=== PATIENT | female | born 1990 | race African-American/Black ===

== ENCOUNTER 2017-01-09 22:50 | Emergency (ER) | payer MEDICAID ==
[~2017-01-09] VITALS: Ht 162.6 cm; Wt 81.6 kg
[2017-01-09 23:00] VITALS: BP 125/73
[2017-01-09 23:38] LABS: Basophils # (auto) 0.1 uL; Eosinophils # (auto) 0.3 uL; Eosinophils % (auto) 2.1 % (0.0-7.0); Hematocrit 40.6 % (36.0-46.0); Hemoglobin 13.7 g/dL (12.2-16.2); Lymphocytes # (auto) 3.7 uL; Lymphocytes % (auto) 29.5 % (10.0-50.0); Mean Corpuscular Hgb Conc. 33.8 g/dL (32.0-36.0); Mean Corpuscular Volume 88.6 fL (80.0-100.0); Mean Platelet Volume 7.9 fL (7.4-10.4); Monocytes # (auto) 0.8 uL; Monocytes % (auto) 6.4 % (0.0-12.0); Neutrophils # (auto) 7.7 uL; Platelet Count (auto) 312 10^3/uL (140-450); Red Cell Distribution Width 11.3 % (11.6-16.0); SUSPECT SEE PRINTOUT; White Blood Cell 12.6 10^3/uL (4.4-10.8)
[2017-01-10] LABS: Urine RBC None Seen /hpf (0 - 4)
[2017-01-10 00:01] LABS: Albumin 4.1 g/dL (3.4-5.0); BUN/Creatinine Ratio 16.5; Potassium 3.7 mmol/L (3.5-5.1)
[2017-01-10 00:04] LABS: Bilirubin, Total 0.2 mg/dL (0.2-1.0); Total Protein 8.1 g/dL (6.4-8.2)
[2017-01-10 00:07] LABS: Urine Bilirubin Negative (Negative); Urine Blood Negative /uL (Negative); Urine Color Yellow (Yellow); Urine Glucose Normal (Normal); Urine Ketone Negative (Negative); Urine Nitrite Negative (Negative); Urine Squamous Epithelial Cell FEW /hpf (<5); Urine Urobilinogen Normal (Negative)
== END 2017-01-10 03:45 | disposition home or self-care (01) ==
LOC: ER 22:50
DX: T83.69XA Infection and inflammatory reaction due to other prosthetic device, implant and graft in genital tract, initial encounter (principal); E66.9 Obesity, unspecified; G43.909 Migraine, unspecified, not intractable, without status migrainosus; Z68.30 Body mass index [BMI] 30.0-30.9, adult; Y83.8 Other surgical procedures as the cause of abnormal reaction of the patient, or of later complication, without mention of misadventure at the time of the procedure; Y92.89 Other specified places as the place of occurrence of the external cause
CPT/HCPCS: 36415; 74000; 80053; 81001; 81025; 82150; 83690; 85025

== ENCOUNTER 2020-05-04 14:55 | Emergency (ER) | payer MEDICAID ==
[~2020-05-04] VITALS: Ht 162.6 cm; Wt 72.6 kg
[~2020-05-04 14:55] MED LIST: BUSP5TAB51 PO; DOXY-340 PO; FLUO20CA19 PO
[2020-05-04 16:46] VITALS: BP 135/87
== END 2020-05-04 16:49 | disposition home or self-care (01) ==
LOC: ER 15:03
DX: M79.601 Pain in right arm (principal); R20.0 Anesthesia of skin; Z87.891 Personal history of nicotine dependence
CPT/HCPCS: 93971

== ENCOUNTER 2021-11-22 17:22 | Emergency (ER) | payer MEDICAID, OTHER ==
[~2021-11-22] VITALS: Ht 160 cm; Wt 72.6 kg
[2021-11-23] MEDS ORDERED: KETOROLAC TROMETH 60MG/2ML VIAL IM ONE (01:15)
[2021-11-23 01:54] VITALS: BP 122/68
== END 2021-11-23 07:43 | disposition left against medical advice (07) ==
LOC: ER 17:22
DX: R10.30 Lower abdominal pain, unspecified (principal); R51.9 Headache, unspecified; Z53.21 Procedure and treatment not carried out due to patient leaving prior to being seen by health care provider; V89.2XXA Person injured in unspecified motor-vehicle accident, traffic, initial encounter; Y93.89 Activity, other specified; Y92.410 Unspecified street and highway as the place of occurrence of the external cause; Y99.8 Other external cause status
CPT/HCPCS: 70450; 70486; 81025; J1885; 96372

== ENCOUNTER 2024-08-02 19:06 | Emergency (ER) | payer MEDICAID ==
[~2024-08-02] VITALS: Ht 157.5 cm; Wt 62.3 kg
[~2024-08-02 19:06] MED LIST changes: -DOXY-340 PO; +DOXY1CAP57 PO
--- NOTE | 2024-08-02 21:18 | DVH ---
EXAMINATION: 3 views of the lumbar spine CLINICAL HISTORY: pain/injury lifting COMPARISON: None Findings and impression: Mild lumbar levoscoliosis. No grossly displaced fractures or subluxations identified. Vertebral yamile dy heights appear maintained. Disc space narrowing at L1-L2 with associated marginal osteophyte forma tion. The visualized sacroiliac joints appear symmetric.
[2024-08-02] MEDS: DexAMETHasone SOD PHOS 10MG/1ML VIAL INJ IM ONE (22:37)
[2024-08-02] MEDS: KETOROLAC TROMETH 60MG/2ML VIAL IM ONE (22:37)
[2024-08-02 22:54] VITALS: BP 100/55; PULSE 77; RESP 18; TEMP 98.3; O2SAT 98
--- NOTE | 2024-08-02 22:59 | ED.PDOC ---
Back pain HPI HPI Comments Pt C/O lower back pain that radiates into the right hip and down the right leg x 5 days. Pt states she believes she pulled something lifting her 17 year old. Denies numbness, weakness, saddle anesthesia, loss of bowel or bladder control. Chief Complaint: Back Pain Time Seen by MD: 19:32 Primary Care Provider: ARMANDO Alvarez Notes: Nurses Notes, Medications, Allergies Allergies: Coded Allergies: NO KNOWN ALLERGIES (Unverified , 01/09/17) Home Meds Active Scripts Doxycycline Monohydrate (Doxycycline Monohydrate) 100 Mg Cap, 1 CAP PO BID for 10 Days, #20 CAP Prov:MINNA WHARTON MD 01/11/19 Reported Medications Fluoxetine Hcl (Pmdd) (Fluoxetine) 20 Mg Cap, 1 CAP PO DAILY, #90 CAP 1 Refill 01/08/19 Buspirone Hcl (Buspirone Hcl) 5 Mg Tab, 5 MG PO Q12HR for 30 Days, MG 01/08/19 Information Source: Patient Mode of Arrival: Ambulatory Past Medical History PAST MEDICAL HISTORY: Depression Surgical History: DAIRY TECHNICIAN History: No Pertinent DAIRY TECHNICIAN History Family History Family History: Reviewed,noncontributory to illness Social History Smoker: Quit Greater Than 1 Year, Cigarettes Alcohol: Occasionally Drugs: Marijuana Lives In: Home Constitutional: denies: chills, diaphoresis, fatigue, fever, malaise, sweats, weakness, others EENTM: denies: blurred vision, double vision, ear bleeding, ear discharge, ear drainage, ear pain, ear ringing, eye pain, eye redness, hearing loss, mouth pain, mouth swelling, nasal discharge, nose bleeding, nose congestion, nose pain, photophobia, tearing, throat pain, throat swelling, voice changes, others Respiratory: denies: cough, hemoptysis, orthopnea, SOB at rest, shortness of breath, SOB with excertion, stridor, wheezing, others Cardiovascular: denies: chest pain, dizzy spells, diaphoresis, Dyspnea on exertion, edema, irregular heart beat, left arm pain, lightheadedness, palpitations, PND, syncope, others Gastrointestinal: denies: abdomen distended, abdominal pain, blood streaked bowels, constipated, diarrhea, dysphagia, difficulty swallowing, hematemesis, melena, nausea, poor appetite, poor fluid intake, rectal bleeding, rectal pain, vomiting, others Genitourinary: denies: abnormal vagina bleeding, burning, dyspareunia, dysuria, flank pain, frequency, hematuria, incontinence, pain, , vagina discharge, urgency, others Neurological: denies: dizziness, fainting, headache, left sided numbness, left sided weakness, numbness, paresthesia, pre-existing deficit, right sided numbness, right sided weakness, seizure, speech problems, tingling, tremors, weakness, others Musculoskeletal: denies: back pain, gout, joint pain, joint swelling, muscle pain, muscle stiffness, neck pain, others Integumetry: denies: bruises, change in color, change in hair/nails, dryness, laceration, lesions, lumps, rash, wounds, others Allergic/Immunocompromised: denies: Difficulty Healing, Frequent Infections, Hives, Itching, others Hematologic/Lymphatic: denies: anemia, blood clots, easy bleeding, easy bruising, swollen glands, others Endocrine: denies: excessive hunger, excessive sweating, excessive thirst, excessive urination, flushing, intolerance to cold, intolerance to heat, unexplained weight gain, unexplained weight loss, others Psychiatric: denies: anxiety, bipolar disorder, depression, hopeless, panic disorder, schizophrenia, sleepless, suicidal, others Physical Exam General Appearance: No Apparent Distress, Normal HEENT: Pharynx Normal Neck: Full Range of Motion, Non-Tender Respiratory: Lungs Clear, No Respiratory Distress, Normal Breath Sounds Cardiovascular: No Murmur, Normal Peripheral Pulses, Regular Rate/Rhythm Breast Exam: Deferred Gastrointestinal: Non Tender, Soft Genitalia: Deferred Pelvic: Deferred Rectal: Deferred Extremities: Normal capillary refill, Normal inspection, Normal range of motion, Non-tender, No pedal edema Musculoskeletal : Location: Bilateral Extremity Location: Back (Palpated over bilateral lower back musculature. No tenderness step-offs or crepitus over L1 through L5 spine. Straight leg raise bilateral strength sensory motion intact positive pedal pulse) Apperance: Normal Neurologic: Alert, optician II-XII nml as Tested, No Motor Deficits, Normal Affect, Normal Mood, No Sensory Deficits Cerebellar Function: Normal Reflexes: Normal Skin: Dry, Normal Color, Warm Lymphatic: No Adenopathy Was a procedure done? Was a procedure done?: No Back Pain Differential Dx Differential Diagnosis: Fracture, Musculoskeletal Pain, Strain X-Ray, Labs, Meds, VS Vital Signs Date Time Temp Pulse Resp B/P (MAP) Pulse Ox O2 Delivery O2 Flow Rate FiO2 08/02/24 22:54 77 18 98 Room Air 08/02/24 22:54 98.3 77 18 100/55 (70) 98 98.3 08/02/24 19:59 98.3 84 18 105/66 (79) 97 Current Medications Medications (Trade) Dose Ordered Sig/Angel Route Start Time Stop Time Status Last Admin Ketorolac Tromethamine (Toradol Injection) 60 mg ONCE ONCE IM 08/02/24 22:15 08/02/24 22:16 DC 08/02/24 22:37 X-Ray, Labs, Meds, VS Comment Lumbar spine shows no acute findings or osseous lesions does show levoscoliosis. Toradol 60 mg IM for the pain reports improvement in pain and function requesting discharge at this time. We will script ibuprofen and muscle relaxer. P in 2-3 days as necessary consider further imaging such as MRI or physical therapy for continued symptoms ER return precautions given patient indicated understanding and agrees with discharge plan of care. Time of 1ST Reevaluation: 23:17 Reevaluation 1ST: Improved Patient Education/Counseling: Diagnosis, Treatment, Prognosis, Need For Follow Up Family Education/Counseling: No Family Present Departure 1 Departure Time of Disposition: 23:16 Impression: Primary Impression: Lumbar sprain Qualified Codes: S33.5XXA - Sprain of ligaments of lumbar spine, initial encounter Disposition: HOME / SELF CARE / HOMELESS Condition: Stable e-Prescriptions Methylprednisolone (Medrol Dosepak) 4 Mg Zaid 4 MG PO UD for 6 Days, #21 TAB UAD Prov: NI MUÑOZ 08/02/24 Tizanidine Hydrochloride (Tizanidine Hcl) 4 Mg Tab 4 MG PO BID PRN for 5 Days, #10 TAB Prov: NI MUÑOZ 08/02/24 Discharged With: Self Critical Care Note Critical Care Time?: No Stability Stability form required: NI Uriostegui Aug 02, 2024 22:59
[2024-08-02] MEDS ORDERED: METH4PAK PO (23:18)
[2024-08-02] MEDS ORDERED: TIZA-142 PO (23:18)
== END 2024-08-02 23:27 | disposition home or self-care (01) ==
LOC: ER 19:06
DX: S33.5XXA Sprain of ligaments of lumbar spine, initial encounter (principal); M79.604 Pain in right leg; M25.551 Pain in right hip; F32.A Depression, unspecified; Z79.899 Other long term (current) drug therapy; Z98.890 Other specified postprocedural states; X58.XXXA Exposure to other specified factors, initial encounter; Y93.89 Activity, other specified; Y92.89 Other specified places as the place of occurrence of the external cause; Y99.8 Other external cause status
CPT/HCPCS: 72100; 96372; 99283; J1885

== ENCOUNTER 2024-10-25 09:27 | Emergency (ER) | payer MEDICAID ==
[~2024-10-25] VITALS: Ht 157.5 cm; Wt 62.3 kg
[2024-10-25] MEDS: cefTRIAXone SOD 1,000 MG VL IM ONE (10:39)
--- NOTE | 2024-10-25 10:40 | ED.PDOC ---
Eye-HPI HPI Comments A 34 YEAR OLD FEMALE PRESENTS TO THE ED WITH COMPLAINT OF EAR PAIN AND SORE THROAT. PATIENT STATES SHE HAS BEEN EXPERIENCING BILATERAL EAR PAIN, NASAL CONGESTION, FEVER THAT COMES AND GOES, COUGH, BODY ACHES, AND A SORE THROAT FOR THE PAST 1 WEEK. PATIENT NOTES SHE HAS A HISTORY OF ASTHMA. PATIENT ALSO NOTES SHE HAS A HISTORY OF FREQUENT EAR INFECTIONS. PATIENT DENIES SHORTNESS OF BREATH, CHEST PAIN, ABDOMINAL PAIN, NAUSEA, VOMITING, HEADACHE, OR OTHER COMPLAINTS. NO OTHER SYMPTOMS OR MODIFYING FACTORS AT THIS TIME. PATIENT IS ALERT, ORIENTED X 4, AND HAS STEADY GAIT. Chief Complaint: Flu like Time Seen by MD: 09:57 Primary Care Provider: ARMANDO Reviewed Notes: Nurses Notes, Medications, Allergies Allergies: Coded Allergies: NO KNOWN ALLERGIES (Unverified , 01/09/17) Home Meds Active Scripts Methylprednisolone (Medrol Dosepak) 4 Mg Zaid, 4 MG PO UD, #21 TAB UAD Prov:ALESHA VYAS 10/25/24 Acetaminophen (Tylenol Extra Strength Fo) 500 Mg Tab, 1000 MG PO BID, #30 TAB Prov:ALESHA VYAS 10/25/24 Amoxicillin & Pot Clavulanate (AUGMENTIN TABLET) 875 Mg Tb, 875 MG PO BID, #20 TAB Prov:ALESHA VYAS 10/25/24 Doxycycline Monohydrate (Doxycycline Monohydrate) 100 Mg Cap, 1 CAP PO BID for 10 Days, #20 CAP Prov:MINNA WHARTON MD 01/11/19 Reported Medications Fluoxetine Hcl (Pmdd) (Fluoxetine) 20 Mg Cap, 1 CAP PO DAILY, #90 CAP 1 Refill 01/08/19 Buspirone Hcl (Buspirone Hcl) 5 Mg Tab, 5 MG PO Q12HR for 30 Days, MG 01/08/19 Information Source: Patient Mode of Arrival: Ambulatory Timing: Days Duration: Since onset, Days Prehospital treatment: None Quality: Pain, Red Lids: Normal Conjunctiva: Normal Cornea: Normal Pupils: Normal EOM: Normal Fundus: Normal Slit lamp exam: Normal Anterior chamber: Normal Mouth Location: Pharynx Mouth: Normal ENT Ear Exam: Normal, Red, Bulging, Normal Nose: Normal Sinuses: Normal Oropharynx: Tonsillar hypertrophy, Red Onset: Spontaneous Throat Exposed to: None History of: None Last Tetanus: Unknown Modifying factors: Nothing Associated signs and symptoms: Nasal Symptoms, Sore Throat, Ear Pain Past Medical History PAST MEDICAL HISTORY: Depression Surgical History: MEAT LUGGER History: No Pertinent MEAT LUGGER History Family History Family History: Reviewed,noncontributory to illness Social History Smoker: Quit Greater Than 1 Year, Cigarettes Alcohol: Occasionally Drugs: Marijuana Lives In: Home Constitutional: reports: fever; denies: chills, diaphoresis, fatigue, malaise, sweats, weakness, others EENTM: reports: ear pain, nose congestion, throat pain, throat swelling; denies: blurred vision, double vision, ear bleeding, ear discharge, ear d rainage, ear ringing, eye pain, eye redness, hearing loss, mouth pain, mouth swelling, nasal discharge, nose bleeding, nose pain, photophobia, tearing, voice changes, others Respiratory: reports: cough; denies: hemoptysis, orthopnea, SOB at rest, shortness of breath, SOB with excertion, stridor, wheezing, others Cardiovascular: denies: chest pain, dizzy spells, diaphoresis, Dyspnea on exertion, edema, irregular heart beat, left arm pain, lightheadedness, palpitations, PND, syncope, others Gastrointestinal: denies: abdomen distended, abdominal pain, blood streaked bowels, constipated, diarrhea, dysphagia, difficulty swallowing, hematemesis, melena, nausea, poor appetite, poor fluid intake, rectal bleeding, rectal pain, vomiting, others Genitourinary: denies: abnormal vagina bleeding, burning, dyspareunia, dysuria, flank pain, frequency, hematuria, incontinence, pain, , vagina discharge, urgency, others Neurological: denies: dizziness, fainting, headache, left sided numbness, left sided weakness, numbness, paresthesia, pre-existing deficit, right sided numbness, right sided weakness, seizure, speech problems, tingling, tremors, weakness, others Musculoskeletal: reports: muscle pain; denies: back pain, gout, joint pain, joint swelling, muscle stiffness, neck pain, others Integumetry: denies: bruises, change in color, change in hair/nails, dryness, laceration, lesions, lumps, rash, wounds, others Allergic/Immunocompromised: denies: Difficulty Healing, Frequent Infections, Hives, Itching, others Hematologic/Lymphatic: denies: anemia, blood clots, easy bleeding, easy bruising, swollen glands, others Endocrine: denies: excessive hunger, excessive sweating, excessive thirst, excessive urination, flushing, intolerance to cold, intolerance to heat, unexplained weight gain, unexplained weight loss, others Psychiatric: denies: anxiety, bipolar disorder, depression, hopeless, panic disorder, schizophrenia, sleepless, suicidal, others All Other Systems: Reviewed and Negative Physical Exam General Appearance: No Apparent Distress, Normal HEENT: PERRL/EOMI, Pharyngeal Erythema (ERYTHEMA AND VESICLE PHARYNX, NO EXUDATES. ), TM Abnormal (L), TM Abnormal (R) Neck: Full Range of Motion, Non-Tender, Normal, Normal Inspection Respiratory: Chest Non-Tender, Expiration, No Accessory Muscle Use, No Respiratory Distress, Rhonchi Cardiovascular: No Edema, No JVD, No Murmur, No Gallop, Normal Peripheral Pulses, Regular Rate/Rhythm Breast Exam: Deferred Gastrointestinal: No Organomegaly, Non Tender, No Pulsatile Mass, Normal Bowel Sounds, Soft Genitalia: Deferred Pelvic: Deferred Rectal: Deferred Extremities: No calf tenderness, Normal capillary refill, Normal inspection, Normal range of motion, Non-tender, No pedal edema Musculoskeletal : Apperance: Normal Neurologic: Alert, paramedical aide II-XII nml as Tested, No Motor Deficits, Normal Affect, Normal Mood, No Sensory Deficits Cerebellar Function: Normal Reflexes: Normal Skin: Dry, Normal Color, Warm Peripheral Pulses: 2+ carotid (R), 2+ carotid (L) Lymphatic: No Adenopathy Was a procedure done? Was a procedure done?: No EENT DIFF Eye: N/A Ear: Cerumen Impaction, Otitis Externa, Otitis Media, Pharyngitis, Sinusitis Nose: N/A Mouth: N/A Sore Throat: Pharyngitis, Streptococcal, Viral Pharyngitis, URI X-Ray, Labs, Meds, VS Vital Signs Date Time Temp Pulse Resp B/P (MAP) Pulse Ox O2 Delivery O2 Flow Rate FiO2 10/25/24 10:45 98 16 98 Room Air 10/25/24 10:45 98.1 97 16 105/68 (80) 98 98.1 10/25/24 10:03 98.3 95 15 94/58 (70) 95 98.3 Current Medications Medications (Trade) Dose Ordered Sig/Angel Route Start Time Stop Time Status Last Admin Ceftriaxone Sodium (Rocephin) 1,000 mg ONCE ONCE IM 10/25/24 10:45 10/25/24 10:46 DC 10/25/24 10:39 X-Ray, Labs, Meds, VS Comment EXTERNAL MEDICAL RECORDS REVIEWED: [NONE] INDEPENDENT HISTORIANS: [NONE] SOCIAL DETERMINANTS OF HEALTH: [NONE] LABS ORDERED: NONE REVIEWED AND INTERPRETED RESULTS: NONE IMAGING ORDERED: XR CHEST: [INTERPRETED BY ME. NO CONSOLIDATIONS OR INFILTRATES SEEN. NO ABNORMALITIES SEEN. PENDING RADIOLOGY REVIEW.] TREATMENTS ORDERED: ROCEPHIN 1 G IM PROCEDURES PERFORMED: NONE CRITICAL CARE TIME: NONE I HAVE DISCUSSED THE PATIENT WITH THE ATTENDING PHYSICIAN DR. MACIAS AND HE AGREES WITH THE PATIENT'S PLAN OF CARE AND DISPOSITION. BASED ON HISTORY OF PRESENT ILLNESS, AND PHYSICAL EXAM, PATIENT WILL BE DISCHARGED HOME. DISCUSSED PLAN FOR DISCHARGE HOME WITH RX AUGMENTIN, MEDROL DOSEPAK, AND IBUPROFEN 800MG MEDICATION WARNINGS GIVEN. SHARED DECISION MAKING: PATIENT INSTRUCTED TO FOLLOW UP WITH PRIMARY CARE PROVIDER IN 1-2 DAYS FOR RE-EVALUATION OF SYMPTOMS. PATIENT VERBALIZES UNDERSTANDING TO RETURN TO ED FOR NEW OR WORSENING SYMPTOMS OR IF FOLLOW UP WITH PCP CANNOT BE OBTAINED. PATIENT FEELS COMFORTABLE GOING HOME AT THIS TIME. ALL QUESTIONS ADDRESSED AT TIME OF DISCHARGE. Images Reviewed?: Images reviewed and evaluated by me Time of 1ST Reevaluation: 11:00 Reevaluation 1ST: Improved Patient Education/Counseling: Diagnosis, Treatment, Need For Follow Up Family Education/Counseling: Diagnosis, Treatment, Need For Follow Up Medical Screening: No EMC Exist At This Time Departure 1 Departure Time of Disposition: 11:00 Impression: Primary Impression: Otitis media of both ears Qualified Codes: H65.193 - Other acute nonsuppurative otitis media, bilateral Additional Impressions: Acute bronchitis Qualified Codes: J20.9 - Acute bronchitis, unspecified Acute pharyngitis Qualified Codes: J02.9 - Acute pharyngitis, unspecified Disposition: HOME / SELF CARE / HOMELESS Condition: Stable Additional Instructions: FOLLOW-UP WITH PCP IN 1 TO 2 DAYS. TAKE MEDICATIONS PRESCRIBED. RETURN TO ED FOR ANY NEW OR WORSENING SYMPTOMS. e-Prescriptions Methylprednisolone (Medrol Dosepak) 4 Mg Zaid 4 MG PO UD, #21 TAB UAD Prov: ALESHA VYAS 10/25/24 Acetaminophen (Tylenol Extra Strength Fo) 500 Mg Tab 1000 MG PO BID, #30 TAB Prov: ALESHA VYAS 10/25/24 Amoxicillin & Pot Clavulanate (AUGMENTIN TABLET) 875 Mg Tb 875 MG PO BID, #20 TAB Prov: ALESHA VYAS 10/25/24 Discharged With: Self Critical Care Note Critical Care Time?: No Stability Stability form required: No I personally scribed for ALESHA VYAS ([email or web address]) on 10/25/24 at 10:40. Electronically submitted by Colin Staton ([email or web address]). ALESHA VYAS Oct 25, 2024 10:40
[2024-10-25 10:45] VITALS: BP 105/68; PULSE 98; RESP 16; TEMP 98.1; O2SAT 98
[2024-10-25] MEDS ORDERED: AUG875T PO (10:53)
[2024-10-25] MEDS ORDERED: ACET-1304 PO (10:53)
[2024-10-25] MEDS ORDERED: METH4PAK PO (10:53)
--- NOTE | 2024-10-25 11:01 | DVH ---
CHEST RADIOGRAPH Indication: COUGH Technique: Single frontal view of the chest was obtained COMPARISON: None FINDINGS: Lines and Tubes: None Lungs: Clear Pleura: No effusion. No pneumothorax. Cardiomediastinal contours: Unremarkable Bones: Unremarkable IMPRESSION: No acute disease.
== END 2024-10-25 10:58 | disposition home or self-care (01) ==
LOC: ER 09:27
DX: H66.93 Otitis media, unspecified, bilateral (principal); J20.9 Acute bronchitis, unspecified; F32.A Depression, unspecified; J45.909 Unspecified asthma, uncomplicated; F12.90 Cannabis use, unspecified, uncomplicated; Z87.891 Personal history of nicotine dependence; Z79.899 Other long term (current) drug therapy
CPT/HCPCS: 71045; 96372; 99283; J0696